=== PATIENT | female | born 1955 | race Hispanic/Latino ===

== ENCOUNTER 2016-11-27 02:12 | Emergency (ER) | payer OTHER ==
[2016-11-27 03:17] VITALS: BP 167/102
[2016-11-27] MEDS ORDERED: MORPHINE IM ONE (03:41)
[2016-11-27] MEDS ORDERED: ZOFRAN ODT PO ONE (03:41)
--- NOTE | 2016-11-27 03:44 | XRay Report ---
FINAL REPORT PROCEDURE: XR ANKLE 3 RT TECHNIQUE: Right ankle radiographs, AP, lateral, and oblique views. CPT 25913 HISTORY: fall, RT ANKLE pain, send for report COMPARISON: No prior studies are available for comparison. FINDINGS: Fracture (s) and/or Dislocation(s): None . Alignment: Normal . Joint space(s): Normal . Soft tissues: Normal . Bone mineralization: Normal . Foreign bodies: None . Calcaneal spurring: None . IMPRESSION: Normal Examination .
--- NOTE | 2016-11-27 03:46 | XRay Report ---
FINAL REPORT PROCEDURE: XR FOOT 3 RT TECHNIQUE: Right foot radiographs, AP, lateral, and oblique views. CPT 95601 HISTORY: fall, RT FOOT pain, send for report COMPARISON: No prior studies are available for comparison. FINDINGS: Fracture (s) and/or Dislocation(s): None . Alignment: Normal . Joint space(s): Normal . Soft tissues: Normal . Bone mineralization: Normal . Foreign bodies: None . Calcaneal spurring: None . IMPRESSION: Normal Examination
--- NOTE | 2016-11-27 03:53 | XRay Report ---
FINAL REPORT PROCEDURE: XR KNEE THREE-VIEW RIGHT TECHNIQUE: RIGHT knee radiographs, AP, lateral and oblique views. CPT 08676 HISTORY: Right knee pain after trauma. Fall, RT KNEE pain COMPARISON: No prior studies are available for comparison. FINDINGS: Fracture (s) and/or Dislocation(s): None . Alignment: Normal . Joint space(s): Normal . Soft tissues: Normal . Bone mineralization: Normal . Foreign bodies: None . IMPRESSION: There is no plain film evidence of fracture or dislocation or acute finding..
--- NOTE | 2016-11-27 04:12 | Emergency Department Report ---
HPI - General Chief Complaint: Extremity Injury, Lower Time Seen by Provider: 11/27/16 03:14 - HPI HPI: 61-year-old female presents today complaining of right ankle and foot pain post fall that occurred at 2130 hrs. yesterday. Patient states that she fell at the end of the driveway. Patient does not remember how she landed. Denies head injury or loss of consciousness. Describes her pain as a 10 out of 10 constant , aching pain. Denies striking any medication for pain relief. Denies fever, chills, nausea, vomiting, headache, visual changes, chest pain, shortness of breath, abdominal pain. Patient also admits to having chronic hip pain. She states that her hip pain has not worsened but it does hurt. Patient does have history of hypertension and has been noncompliant with her medication for one year. ED Past Medical Hx - Past Medical History Previous Medical History?: Yes Hx Hypertension: Yes Additional medical history: sjogren's syndrome, raynauds syndrome. stress fracture to left foot - Surgical History Past Surgical History?: Yes Hx Cholecystectomy: Yes Additional Surgical History: left arm, D&C - Social History Smoking Status: Current Every Day Smoker Substance Use Type: Alcohol - Medications Home Medications: Home Medications Medication Instructions Recorded Confirmed Last Taken Type traMADol [Ultram 50 MG tab] 50 mg PO Q6HR PRN #20 tablet 11/27/16 Unknown Rx ED Review of Systems ROS: Stated complaint: RT FOOT INJURY Other details as noted in HPI Constitutional: denies: chills, fever, malaise Eyes: denies: eye pain ENT: denies: ear pain, throat pain, congestion Respiratory: denies: cough, shortness of breath, wheezing Cardiovascular: denies: chest pain, palpitations Endocrine: no symptoms reported Gastrointestinal: denies: abdominal pain, nausea, vomiting Musculoskeletal: arthralgia Neurological: denies: headache, weakness, numbness, paresthesias Physical Exam - Physical Exam Vital Signs: Vital Signs 11/27/16 11/27/16 02:38 03:16 Temperature 98.3 F Pulse Rate 95 H 92 H Respiratory 18 20 Rate Blood Pressure 167/102 [Left] Blood Pressure 181/106 [Right] O2 Sat by Pulse 98 Oximetry Physical Exam: GENERAL: The patient is well-developed and well-nourished. Patient is in NAD. HEAD: Normocephalic. Atraumatic. NECK: Full range of motion. No midline or paraspinal tenderness to palpation. BACK: Full ROM. No midline or paraspinal tenderness to palpation. Negative straight leg raise bilaterally. CHEST/LUNGS: Clear to auscultation throughout. HEART/CARDIOVASCULAR: Regular rate and rhythm. No murmurs, rubs or gallops. ABDOMEN: Abdomen is soft, nontender. Bowel sounds normoactive. No guarding or rebound tenderness. RIGHT LOWER EXTREMITY: Limited range of motion due to pain. Tenderness to palpation over medial and posterior aspect of the left knee. Tenderness to palpation over the ankle and dorsal aspect of left foot. Normal sensation. Peripheral pulses intact. Capillary refill less than 2 seconds. NEURO: Alert and oriented x 3. ED Course Vital Signs 11/27/16 11/27/16 02:38 03:16 Temperature 98.3 F Pulse Rate 95 H 92 H Respiratory 18 20 Rate Blood Pressure 167/102 [Left] Blood Pressure 181/106 [Right] O2 Sat by Pulse 98 Oximetry ED Medical Decision Making - Lab Data Vital Signs 11/27/16 11/27/16 02:38 03:16 Temperature 98.3 F Pulse Rate 95 H 92 H Respiratory 18 20 Rate Blood Pressure 167/102 [Left] Blood Pressure 181/106 [Right] O2 Sat by Pulse 98 Oximetry - Radiology Data Radiology results: report reviewed PROCEDURE: XR HIPS BILAT 2V W/PELVIS TECHNIQUE: RIGHT and LEFT hip radiographs, AP and lateral views of each hip. HISTORY: Fall - pain COMPARISON: No prior studies are available for comparison. FINDINGS: Fracture (s) and/or Dislocation(s): None . Joint space(s): There is mild degenerative arthrosis of the hip joints. There are no fractures or malalignments. Soft tissues: Normal. Bone mineralization: Normal. Foreign bodies: None. IMPRESSION: There is mild degenerative arthrosis of the hip joints. There are no fractures or malalignments. PROCEDURE: XR KNEE THREE-VIEW RIGHT TECHNIQUE: RIGHT knee radiographs, AP, lateral and oblique views. CPT 87481 HISTORY: Right knee pain after trauma. Fall, RT KNEE pain COMPARISON: No prior studies are available for comparison. FINDINGS: Fracture (s) and/or Dislocation(s): None . Alignment: Normal . Joint space(s): Normal . Soft tissues: Normal . Bone mineralization: Normal . Foreign bodies: None . IMPRESSION: There is no plain film evidence of fracture or dislocation or acute finding. PROCEDURE: XR ANKLE 3 RT TECHNIQUE: Right ankle radiographs, AP, lateral, and oblique views. CPT 48819 HISTORY: fall, RT ANKLE pain, send for report COMPARISON: No prior studies are available for comparison. FINDINGS: Fracture (s) and/or Dislocation(s): None . Alignment: Normal . Joint space(s): Normal . Soft tissues: Normal . Bone mineralization: Normal . Foreign bodies: None . Calcaneal spurring: None . IMPRESSION: Normal Examination . PROCEDURE: XR FOOT 3 RT TECHNIQUE: Right foot radiographs, AP, lateral, and oblique views. CPT 15717 HISTORY: fall, RT FOOT pain, send for report COMPARISON: No prior studies are available for comparison. FINDINGS: Fracture (s) and/or Dislocation(s): None . Alignment: Normal . Joint space(s): Normal . Soft tissues: Normal . Bone mineralization: Normal . Foreign bodies: None . Calcaneal spurring: None . IMPRESSION: Normal Examination - Medical Decision Making 61-year-old female presents today complaining of right foot, ankle pain post fall. Her x-ray results revealed no fracture or acute findings. Patient has been provided with a referral for orthopedic. Patient is in no acute distress at this time. She will be discharged home and is encouraged to follow up with a primary care provider. She will be sent home on tramadol and is encouraged to return to the emergency room for any worsening symptoms. As per the [employer] clinical policy on asymptomatic hypertension: Initiating treatment for asymptomatic hypertension in the ED is not necessary when patients have follow-up; (2) Rapidly lowering blood pressure in asymptomatic patients in the ED is unnecessary and may be harmful in some patients; (3) When ED treatment for asymptomatic hypertension is initiated, blood pressure management should attempt to gradually lower blood pressure and should not be expected to be normalized during the initial ED visit. Emphasized the importance of follow up with primary care physician and explained to patient that uncontrolled hypertension can lead to long-term complications of hypertension/elevated blood pressure including stroke, heart attack, disability, , paralysis, permanent loss of quality of life. Patient expressed understanding. Critical care attestation.: If time is entered above; I have spent that time in minutes in the direct care of this critically ill patient, excluding procedure time. ED Disposition Clinical Impression: Foot pain Qualifiers: Laterality: right Qualified Code(s): M79.671 - Pain in right foot Ankle pain Qualifiers: Laterality: right Chronicity: acute Qualified Code(s): M25.571 - Pain in right ankle and joints of right foot Fall Qualifiers: Encounter type: initial encounter Qualified Code(s): W19.XXXA - Unspecified fall, initial encounter Knee pain Qualifiers: Laterality: right Chronicity: acute Qualified Code(s): M25.561 - Pain in right knee Hip pain Qualifiers: Laterality: bilateral Qualified Code(s): M25.551 - Pain in right hip; M25.552 - Pain in left hip Disposition: DISCHARGED TO HOME OR SELFCARE Is pt being admited?: No Does the pt Need Aspirin: No Condition: Stable Instructions: Arthralgia (ED), Fall Prevention (ED) Additional Instructions: Follow-up with primary care provider at orthopedic. Return to the emergency department if symptoms worsen. Prescriptions: traMADol [Ultram 50 MG tab] 50 mg PO Q6HR PRN #20 tablet PRN Reason: Pain Referrals: PRIMARY MD JOHN [Primary Care Provider] - 3-5 Days ANANTH NUNEZ MD [Staff Physician] - 3-5 Days [facility] [Outside] - 3-5 Days Forms: Work/School Release Form(ED) Time of Disposition: 05:57
--- NOTE | 2016-11-27 05:45 | XRay Report ---
FINAL REPORT PROCEDURE: XR HIPS BILAT 2V W/PELVIS TECHNIQUE: RIGHT and LEFT hip radiographs, AP and lateral views of each hip. HISTORY: Fall - pain COMPARISON: No prior studies are available for comparison. FINDINGS: Fracture (s) and/or Dislocation(s): None . Joint space(s): There is mild degenerative arthrosis of the hip joints. There are no fractures or malalignments. Soft tissues: Normal. Bone mineralization: Normal. Foreign bodies: None. IMPRESSION: There is mild degenerative arthrosis of the hip joints. There are no fractures or malalignments.
== END 2016-11-27 06:12 | disposition home or self-care (01) ==
LOC: ED 02:12
DX: M79.671 Pain in right foot (principal); M25.571 Pain in right ankle and joints of right foot; M25.561 Pain in right knee; M25.552 Pain in left hip; I10 Essential (primary) hypertension; F17.200 Nicotine dependence, unspecified, uncomplicated; W19.XXXA Unspecified fall, initial encounter; Y93.89 Activity, other specified; Y92.89 Other specified places as the place of occurrence of the external cause; Y99.8 Other external cause status
CPT/HCPCS: 73521; 73562; 73610; 73630; 96372; 99283; J2270; Q0162

== ENCOUNTER 2019-01-02 19:55 | Emergency (ER) | payer SELFPAY ==
--- NOTE | 2019-01-02 21:03 | Emergency Department Report ---
Blank Doc - Documentation Documentation: pt states that she was cleaning a storage building states that she believes something is in the eye that began 5 hours ago has pain in the left eye has blurry vision in the left eye has had clear drainage (+) photophobia PMHx sjogren visual acuity right eye: 20/30 left eye: 20/70 both: 20/25 <KAYLAN CAMARENA - Last Filed: 01/02/19 21:01> - Documentation Documentation: A physician and/or other qualified medical personnel has recommended that the patient receive further examination and/or treatment beyond their Medical Screening Exam. The risks and benefits were explained. The patient was informed of their right to emergency care. Patient left before final disposition of their medical condition. This note has been generated by me, Dr. Niyah Conrad III, MD, the [employer] or for the emergency department. I have not seen this patient personally. <NIYAH CONRAD - Last Filed: 01/04/19 15:50>
[2019-01-02 21:05] VITALS: BP 168/85
== END 2019-01-02 22:50 | disposition left against medical advice (07) ==
LOC: ED 19:55
DX: H57.12 Ocular pain, left eye (principal); Z53.21 Procedure and treatment not carried out due to patient leaving prior to being seen by health care provider